=== PATIENT | female | born 1975 | race Hispanic/Latino ===

== ENCOUNTER 2017-11-09 02:27 | Emergency (ER) | payer OTHER ==
[~2017-11-09] VITALS: Ht 154.9 cm; Wt 72.6 kg
[~2017-11-09 02:27] MED LIST: AMLODIPINE BESY10 M1 PO; HYDROCHLOROTHIA25 M1 PO
--- NOTE | 2017-11-09 02:39 | ED GENERAL ADULT ---
History of Present Illness General Chief Complaint: General Adult Stated Complaint: "IM PASSING A KIDNEY STONE" Source: patient Exam Limitations: no limitations Vital Signs & Intake/Output Vital Signs & Intake/Output Vital Signs Date Time Temp Pulse Resp B/P B/P Pulse O2 O2 Flow FiO2 Mean Ox Delivery Rate 11/09 0454 89 22 125/82 98 11/09 0238 97.5 98 20 153/119 98 Room Air Room Air Allergies Coded Allergies: NO KNOWN ALLERGIES (NO) (UNKNOWN 11/09/17) Reconcile Medications Amlodipine Besylate 10 MG TABLET 1 TAB PO DAILY HEART (Reported) Hydrochlorothiazide 25 MG TABLET 1 TAB PO DAILY WATER PILL (Reported) Triage Note: 42YO FEMALE TO TRIAGE W/CO L SIDED PAIN THAT RADIATES TO FLANK. STATES US IN EARLY SEPTEMBER SHOWED 3 STONES. Triage Nurses Notes Reviewed? yes Onset: Abrupt Duration: hour(s): Timing: single episode today : No Patient currently breastfeeds: No HPI: 42-year-old woman with no significant past medical history seen for evaluation of flank pain. Patient reports having an ultrasound in early September that demonstrated Two 3 mm nonobstructing calculi in the right kidney without hydronephrosis. Patient reports having left-sided flank pain this evening that was worse than before prompting her to come to the [place] ED for evaluation. She denies any fever, chills, or dysuria. Past History Travel History Traveled to [place] past 21 day No Medical History Any Pertinent Medical History? see below for history Neurological: NONE EENT: NONE Cardiovascular: hypertension, hyperlipidemia Respiratory: NONE Gastrointestinal: NONE Hepatic: NONE Renal: NONE Musculoskeletal: NONE Psychiatric: NONE Endocrine: NONE Blood Disorders: NONE Cancer(s): NONE PRESSER MACHINE/Reproductive: NONE History of MRSA: No History of VRE: No History of CDIFF: No Surgical History Surgical History: non-contributory Psychosocial History Who do you live with Family Services at Home None What is your primary language Hebrew Tobacco Use: Never used Family History Hx Contributory? No Review of Systems Review of Systems Constitutional: Denies: chills, fever. EENTM: Reports: no symptoms. Respiratory: Reports: no symptoms. Cardiovascular: Reports: no symptoms. GI: Reports: no symptoms. Genitourinary: Denies: dysuria, frequency, hematuria, pain. Musculoskeletal: Reports: no symptoms. Skin: Reports: no symptoms. Neurological/Psychological: Reports: no symptoms. Hematologic/Endocrine: Reports: no symptoms. Immunologic/Allergic: Reports: no symptoms. Physical Exam Physical Exam General Appearance: well developed/nourished, no apparent distress, alert, awake , comfortable Head: atraumatic, normal appearance Eyes: Bilateral: normal appearance, PERRL, EOMI. Ears, Nose, Throat: normal pharynx, normal ENT inspection Neck: normal inspection, supple, full range of motion Respiratory: chest non-tender, no respiratory distress, quiet respiration Cardiovascular: regular rate/rhythm Peripheral Pulses: 4+ radial (R), 4+ radial (L) Gastrointestinal: soft, non-tender Back: normal inspection, normal range of motion, CVA tenderness (L) Extremities: normal inspection, normal range of motion Neurologic/Psych: no motor/sensory deficits, awake, alert, oriented x 3 Skin: intact, normal color, warm/dry Core Measures ACS in differential dx? No CVA/TIA Diagnosis: No Sepsis Present: No Sepsis Focused Exam Completed? No Progress Differential Diagnoses I considered the following diagnoses in my evaluation of the patient: Nephrolithiasis, sepsis, UTI, pyelonephritis, ovarian torsion, ectopic , fibroid uterus, peritonitis Plan of Care: Orders Procedure Date/time Status Add-on Test (ER Only) 11/09 0322 Active CULTURE,URINE 11/09 0249 Active COMPREHENSIVE METABOLIC PANEL 11/09 0249 Complete CBC WITHOUT DIFFERENTIAL 11/09 024 Complete URINE 11/09 0241 Complete URINALYSIS 11/09 0241 Complete Current Medications Sig/Tad Start time Last Medication Dose Stop Time Status Admin Ketorolac 30 MG ONCE ONE 11/09 030 CAN Tromethamine 11/09 0301 (Toradol) Laboratory Tests 11/09/17 0300: Anion Gap 13, Estimated GFR > 60, BUN/Creatinine Ratio 26.7 H, Glucose 129 H, Calcium 9.0, Total Bilirubin 0.3, AST 45 H, ALT 88 H, Alkaline Phosphatase 82, Total Protein 6.4, Albumin 3.5, Globulin 2.9, Albumin/Globulin Ratio 1.2, CBC w Diff NO MAN DIFF REQ, RBC 4.27, MCV 83.0, MCH 27.8, MCHC 33.5, RDW 13.2, MPV 8.8 , Gran % 66.8, Lymphocytes % 23.1, Monocytes % 7.8, Eosinophils % 1.8, Basophils % 0.5, Absolute Granulocytes 6.3, Absolute Lymphocytes 2.2, Absolute Monocytes 0.7 H, Absolute Eosinophils 0.2, Absolute Basophils 0 11/09/17 0250: Urinalysis MOD H, Urine Color STRAW, Urine Clarity TURBD H, Urine pH 6.0, Ur Specific [place] >= 1.030, Urine Protein >=300 H, Urine Ketones NEG, Urine Nitrite NEG, Urine Bilirubin NEG, Urine Urobilinogen 0.2, Ur Leukocyte Esterase NEG, Ur Microscopic SEDIMENT EXAMINED, Urine RBC 1-3, Urine WBC 1-3 H, Ur Epithelial Cells FEW, Urine Crystals , Urine Bacteria FEW H, Urine Hemoglobin LARGE H, Urine Glucose NEG, Urine Test NEGATIVE Microbiology 11/09 249 URINE ROUT: Urine Culture - RECD Initial ED EKG: none Departure Departure Disposition: STILL A PATIENT Condition: Stable Clinical Impression Primary Impression: Renal colic Referrals: Ema Lee APRN (PCP/Family) Departure Forms: Customer Survey General Discharge Information Comments IMPRESSION: Two 3 mm nonobstructing calculi of the right kidney. No hydronephrosis. DICTATED BY: Samson Guzman MD DATE/TIME DICTATED:10/27/171402 MANAGER [employer]:CHRISTIAN DATE/TIME TRANSCRIBED:10/27/171402 CONFIDENTIAL, DO NOT COPY WITHOUT APPROPRIATE AUTHORIZATION. <Electronically signed in Other Vendor System> SIGNED BY: Samson Guzman MD 10/27/17 1504 7:26 AM Labs unremarkable other than mild elevation of the transaminases. CT negative. Patient's pain is improved. She will be discharged. She will follow-up with her doctor this week and review the lab results with her. Critical Care Note Critical Care Note Critical Care Time: non-applicable
[2017-11-09 03:28] LABS: ABSOLUTE BASOPHIL COUNT 0 /CUMM (0.0-0.2); ABSOLUTE EOSINOPHIL COUNT 0.2 /CUMM (0.0-0.7); ABSOLUTE GRANULOCYTE CT 6.3 /CUMM (1.4-6.5); ABSOLUTE LYMPH COUNT 2.2 /CUMM (1.2-3.4); ABSOLUTE MONOCYTE COUNT 0.7 /CUMM (0.10-0.60); BASOPHIL % 0.5 % (0.0-2.0); EOSINOPHIL % 1.8 % (0-5); GRANULOCYTE % 66.8 % (42.2-75.2); HEMATOCRIT 35.4 % (37-47); MEAN CORPUSCULAR HGB 27.8 PG (27.0-31.0); MEAN CORPUSCULAR HGB CONC 33.5 G/DL (33.0-37.0); MEAN PLATELET VOLUME 8.8 FL (7.4-10.4); PLATELET COUNT 298 /CUMM (130-400); RBC DISTRIBUTION WIDTH 13.2 % (11.5-14.5); RED BLOOD CELL CT 4.27 /CUMM (4.20-5.40); WHITE BLOOD CELL COUNT 9.4 /CUMM (4.8-10.8)
[2017-11-09 04:54] VITALS: BP 125/82
--- NOTE | 2017-11-09 06:46 | CT SCAN REPORT ---
EXAMINATION: CT ABDOMEN AND PELVIS WITHOUT CONTRAST CLINICAL INFORMATION: Flank pain, rule out ureterolithiasis COMPARISON: 08/16/2013 TECHNIQUE: Multidetector volumetric imaging was performed from the superior aspect of the liver through the pubic symphysis. Sagittal and coronal reformatted images were obtained on the technologist's workstation. DLP: 328.47 mGy-cm FINDINGS: LUNG BASES: The visualized lung bases are unremarkable. LIVER, GALLBLADDER, AND BILIARY TREE: The liver is normal in size, shape, and attenuation. No focal hepatic lesion or biliary ductal dilatation is present. Patient is status post cholecystectomy. PANCREAS: Unremarkable. SPLEEN: Unremarkable. ADRENAL GLANDS: Unremarkable. KIDNEYS AND URETERS: There is a 2 mm right mid renal calculus. No hydronephrosis bilaterally. No ureteral calculi are seen bilaterally. BLADDER: Unremarkable. GASTROINTESTINAL TRACT: The small and large bowel are unremarkable. The appendix is unremarkable. ABDOMINAL WALL: No significant hernia is appreciated. LYMPH NODES: Normal. VASCULAR: Unremarkable. PELVIC VISCERA: Patient is status post hysterectomy. OSSEOUS STRUCTURES: There is degenerative change in the spine at L5-S1. IMPRESSION: No hydronephrosis or ureteral calculus identified. Right renal calculus measuring 2 mm.
[2017-11-09] MEDS ORDERED: PERCOCET 5-3251 EACH PO (07:28)
== END 2017-11-09 07:29 ==
LOC: ERH 02:27
PROVIDERS: Emergency Medicine
DX: N23 Unspecified renal colic (principal); R10.9 Unspecified abdominal pain
CPT/HCPCS: 74176; 81001; 81025; 87086; 96361; 96374; 96375; J1885; J2405